=== PATIENT | female | born 1985 | race African-American/Black ===

== ENCOUNTER 2017-10-23 07:56 | Emergency (ER) | payer SELFPAY, OTHER ==
[2017-10-23 09:02] LABS: COLOR,URINE RED; GLUCOSE,URINE NEGATIVE (NEG); PH,URINE 5.5; PROTEIN,URINE 100 mg/dL (NEG-TRACE)
[2017-10-23 09:16] LABS: CLARITY,URINE BLOODY
[2017-10-23 09:18] LABS: RBC,URINE TNTC /HPF (0-2)
[2017-10-23 09:19] LABS: BACTERIA,URINE MANY /HPF (0-FEW); SQUAMOUS EPITHELIAL CELL,UR FEW /LPF
== END 2017-10-23 11:02 | disposition home or self-care (01) ==
LOC: ER 11:02
DX: G89.18 Other acute postprocedural pain (principal); R31.9 Hematuria, unspecified; Z87.440 Personal history of urinary (tract) infections; Z98.51 Tubal ligation status
CPT/HCPCS: 74176; 81001; 87086; 99285-25